=== PATIENT | female | born 1975 ===

== ENCOUNTER 2018-09-24 19:17 | Emergency (ER) | payer BC, MEDICAID ==
[2018-09-24 19:18] VITALS: BMI 35.4
[2018-09-24] MEDS ORDERED: Oxycodone/Acetaminophen 5/325 mg Tab PO STA (19:54)
[2018-09-24] MEDS ORDERED: Oxycodone/Acetaminophen 5/325 mg Tab ONE (20:07)
--- NOTE | 2018-09-24 20:15 | ED PDOC ---
HPI: General Adult Time Seen by Provider: 09/24/18 19:27 Chief Complaint (Nursing): ENT Problem Chief Complaint (Provider): ENT problem History Per: Patient History/Exam Limitations: no limitations Onset/Duration Of Symptoms: Days (2x weeks) Current Symptoms Are (Timing): Still Present Severity: Moderate Additional Complaint(s): 42 year old female with a past medical history of diabetes presents to the ED for an evaluation of left ear pain progressively worsening for the past 2x weeks. Patient reports taking meloxicam for the pain. Patient also reports that she takes enbrel. Patient denies recently swimming, having fevers, chills, or a sore throat. PMD: lark Past Medical History Reviewed: Historical Data, Nursing Documentation, Vital Signs Vital Signs: Last Vital Signs Temp 98.7 F 09/24/18 19:22 Pulse 85 09/24/18 19:22 Resp 16 09/24/18 19:22 BP 112/68 09/24/18 19:22 Pulse Ox 97 09/24/18 19:22 KAREEN Report Viewed: Yes - Medical History PMH: Arthritis, Diabetes, Kidney Stones (Right kidney stones with stent insertion 4 years ago), Chronic Kidney Disease, Rheumatoid Arthritis - Surgical History Surgical History: Appendectomy (2004) - Family History Family History: States: CAD, Diabetes - Social History Current smoker - smoking cessation education provided: No Alcohol: None Drugs: Denies - Immunization History Hx Tetanus Toxoid Vaccination: No Hx Influenza Vaccination: No Hx Pneumococcal Vaccination: No - Home Medications Home Medications: Ambulatory Orders Medication Instructions Recorded Etanercept [Enbrel] 50 mg SC QWK 10/10/14 MetFORMIN [glucoPHAGE] 1,000 mg PO BID 10/10/14 Dicyclomine [Bentyl] 10 mg PO Q8H PRN 09/11/15 Exenatide Microspheres [Bydureon 2 mg SC QWK 09/11/15 Pen] Famotidine [Pepcid] 20 mg PO BID 09/11/15 Sucralfate [Carafate Oral Susp] 1 gm PO QID #0 udc 09/12/15 Ciprofloxacin [Cipro] 500 mg PO BID #14 tab 09/24/18 Ibuprofen [Motrin Tab] 800 mg PO TID PRN #10 tab 09/24/18 Ofloxacin Otic 0.3% [Floxin 0.3% 10 drop DAILY #1 bottle 09/24/18 Otic Soln] - Allergies Allergies/Adverse Reactions: Allergies Allergy/AdvReac Type Severity Reaction Status Date / Time shellfish derived Allergy RASH Verified 09/11/15 09:17 Review of Systems ROS Statement: Except As Marked, All Systems Reviewed And Found Negative Constitutional: Negative for: Fever, Chills ENT: Positive for: Ear Pain (left ear). Negative for: Throat Pain Physical Exam - Reviewed Nursing Documentation Reviewed: Yes Vital Signs Reviewed: Yes - Physical Exam Appears: Positive for: Well, Non-toxic, No Acute Distress Head Exam: Positive for: ATRAUMATIC, NORMOCEPHALIC Skin: Positive for: Normal Color, Warm, Dry Eye Exam: Positive for: Normal appearance ENT: Positive for: Other (left ear canal: moderate erythema, (-) edema. bilateral TM intact. (-) mastoid swelling or tenderness. ). Negative for: Pharyngeal Erythema ((-) exudates), Tonsillar Exudate, Tonsillar Swelling ((-) erythema) Neurological/Psych: Positive for: Awake, Alert, Oriented (3x) - ECG O2 Sat by Pulse Oximetry: 97 (RA) Pulse Ox Interpretation: Normal - Progress Re-evaluation Time: 20:00 Condition: Re-examined, Improved Medical Decision Making Medical Decision Makin:27 Initial impression: 42 year old female with ear pain Intial plan: * toradol 30 mg IM * percocet 5/325 mg tab 1 tab PO * reevaluation Scribe Attestation: Documented by Kendy Brizuela, acting as a scribe for Alvin Lambert Provider Scribe Attestation: All medical record entries made by the Scribe were at my direction and personally dictated by me. I have reviewed the chart and agree that the record accurately reflects my personal performance of the history, physical exam, medical decision making, and the department course for this patient. I have also personally directed, reviewed, and agree with the discharge instructions and disposition. Disposition - Clinical Impression Clinical Impression: Otitis externa - Patient ED Disposition Is Patient to be Admitted: No - Disposition Referrals: [facility] [Outside] Disposition: Routine/Home Disposition Time: 20:00 Condition: IMPROVED Additional Instructions: LEMUEL SMITH, thank you for letting us take care of you today. Your provider was Rhonda Wooten MD and you were treated for LT EAR RODAS. The emergency medical care you received today was directed at your acute symptoms. If you were prescribed any medication, please fill it and take as directed. It may take several days for your symptoms to resolve. Return to the Emergency Department if your symptoms worsen, do not improve, or if you have any other problems. Please contact your doctor or call one of the physicians/clinics you have been referred to that are listed on the Patient Visit Information form that is included in your discharge packet. Bring any paperwork you were given at discharge with you along with any medications you are taking to your follow up visit. Our treatment cannot replace ongoing medical care by a primary care provider outside of the emergency department. Thank you for allowing the [facility] team to be part of your care today. If you had an X-Ray or CT scan: A Radiologist will review the ED reading if any change in treatment is needed we will contact you. If you had a blood, urine, or wound culture: It will take several days for the results, if any change in treatment is needed we will contact you. If you had an STI test: It will take 48 hours for the results. Please call after 1 week if you have not heard back. Prescriptions: Ciprofloxacin [Cipro] 500 mg PO BID #14 tab Ibuprofen [Motrin Tab] 800 mg PO TID PRN #10 tab PRN Reason: Pain Ofloxacin Otic 0.3% [Floxin 0.3% Otic Soln] 10 drop DAILY #1 bottle Instructions: Outer Ear Infection (DC) Forms: [email or web address] (Somali) Print Language: NORWEGIAN
[2018-09-24 21:05] VITALS: BP 108/63; PULSE 81; RESP 18; TEMP 98.8
[2018-09-24 21:29] VITALS: O2SAT 97
== END 2018-09-24 21:00 | disposition home or self-care (01) ==
LOC: H.ER 19:17
DX: H60.92 Unspecified otitis externa, left ear (principal); Z79.84 Long term (current) use of oral hypoglycemic drugs; Z82.49 Family history of ischemic heart disease and other diseases of the circulatory system
CPT/HCPCS: 81025; 96372; 99283; J1885

== ENCOUNTER 2018-10-03 10:47 | Emergency (ER) | payer MEDICAID ==
[2018-10-03 11:10] VITALS: TEMP 97.9
[2018-10-03 11:11] VITALS: BMI 34.2
[2018-10-03] MEDS: Sodium Chloride 0.9% 1,000 ML IV STA (13:26)
[2018-10-03 13:27] LABS: BASO % 0.4 % (0.0-2.0); EOS % 0.2 % (0.0-4.0); HEMOGLOBIN 13.5 g/dL (12.0-16.0); LYMPH # 2.2 K/uL (1.0-4.3); LYMPH % 28.5 % (20.0-40.0); MEAN CELL VOLUME 78.6 fl (81.0-99.0); MEAN CORPUSCULAR HEMOGLOBIN 25.5 pg (27.0-31.0); MEAN CORPUSCULAR HGB CONC 32.5 g/dL (33.0-37.0); MEAN PLATELET VOLUME 8.9 fl (7.2-11.7); MONO # 0.6 K/uL (0.0-0.8); MONO % 7.3 % (0.0-10.0); NEUT # 4.8 K/uL (1.8-7.0); NEUT % 63.6 % (50.0-75.0); NRBC % 0.1 % (0.0-0.0); RBC 5.31 Mil/uL (3.80-5.20); RED CELL DISTRIBUTION WIDTH 17.2 % (11.5-14.5); WHITE BLOOD COUNT 7.6 K/uL (4.8-10.8)
[2018-10-03 13:31] LABS: SQUAMOUS EPITHIAL 3 /hpf (0-5); URINE BILIRUBIN NEGATIVE (NEGATIVE); URINE BLOOD NEGATIVE (NEGATIVE); URINE CLARITY CLEAR (Clear); URINE COLOR YELLOW (YELLOW); URINE GLUCOSE (UA) 50 mg/dL (NEGATIVE); URINE LEUKOCYTE ESTERASE TRACE Leu/uL (Negative); URINE PROTEIN NEGATIVE (NEGATIVE); URINE UROBILINOGEN 0.2-1.0 mg/dL (0.2-1.0)
--- NOTE | 2018-10-03 13:35 | ED PDOC ---
HPI: CCC, URI, Sore Throat Time Seen by Provider: 10/03/18 11:25 Chief Complaint (Nursing): ENT Problem Chief Complaint (Provider): ENT Problem History Per: Patient History/Exam Limitations: no limitations Onset/Duration Of Symptoms: Days (x1 week) Current Symptoms Are (Timing): Still Present Additional Complaint(s): 42 year old female with medical history of rheumatoid arthritis, presents to the emergency department with a complaint of left ear and facial pain ongoing for 1 week. Patient was recently evaluated by PCP with (-) signs of infection noted and states symptoms are possibly related to RA but pain is persisting. Additionally, she reports associated nausea and vomiting but no fever or chills. PCP: Valeriy Past Medical History Reviewed: Historical Data, Nursing Documentation, Vital Signs Vital Signs: Last Vital Signs Temp 97.9 F 10/03/18 11:09 Pulse 83 10/03/18 11:09 Resp 16 10/03/18 11:09 BP 129/76 10/03/18 11:09 Pulse Ox 97 10/03/18 11:09 Primary Care Provider: FAMILY PROVIDER,NO - Medical History PMH: Arthritis, Diabetes, Kidney Stones (Right kidney stones with stent insertion 4 years ago), Chronic Kidney Disease, Rheumatoid Arthritis - Surgical History Surgical History: Appendectomy (2004) - Family History Family History: States: Unknown Family Hx, CAD, Diabetes - Social History Current smoker - smoking cessation education provided: No Alcohol: None Drugs: Denies - Immunization History Hx Tetanus Toxoid Vaccination: No Hx Influenza Vaccination: No Hx Pneumococcal Vaccination: No - Home Medications Home Medications: Ambulatory Orders Medication Instructions Recorded Etanercept [Enbrel] 50 mg SC QWK 10/10/14 MetFORMIN [glucoPHAGE] 1,000 mg PO BID 10/10/14 Dicyclomine [Bentyl] 10 mg PO Q8H PRN 09/11/15 Exenatide Microspheres [Bydureon 2 mg SC QWK 09/11/15 Pen] Famotidine [Pepcid] 20 mg PO BID 09/11/15 Sucralfate [Carafate Oral Susp] 1 gm PO QID #0 udc 09/12/15 Ciprofloxacin [Cipro] 500 mg PO BID #14 tab 09/24/18 Ibuprofen [Motrin Tab] 800 mg PO TID PRN #10 tab 09/24/18 Ofloxacin Otic 0.3% [Floxin 0.3% 10 drop DAILY #1 bottle 09/24/18 Otic Soln] Ciprofloxacin/Dexamethasone 1 drop BID #1 bottle 10/03/18 [Ciprodex Otic] Ibuprofen [Motrin] 600 mg PO Q6H PRN #20 tab 10/03/18 - Allergies Allergies/Adverse Reactions: Allergies Allergy/AdvReac Type Severity Reaction Status Date / Time shellfish derived Allergy RASH Verified 10/03/18 11:05 Curb-65 Severity Score - CURB-65 Severity Score Confusion: No Bun >19mg/dl (>7mmol/L): No Respiratory Rate greater than/equal to 30: No Systolic BP <90 or Diastolic BP less than/equal 60mmHg: No Age >64: No Curb-65 Score: 0 Percentage 30-day mortality: 0.6% Review of Systems ROS Statement: Except As Marked, All Systems Reviewed And Found Negative Constitutional: Negative for: Fever, Chills ENT: Positive for: Ear Pain (left), Other (left facial pain) Gastrointestinal: Positive for: Nausea, Vomiting Physical Exam - Reviewed Nursing Documentation Reviewed: Yes Vital Signs Reviewed: Yes - Physical Exam Appears: Positive for: Well, No Acute Distress Head Exam: Positive for: ATRAUMATIC, NORMAL INSPECTION, NORMOCEPHALIC Skin: Positive for: Normal Color Eye Exam: Positive for: Normal appearance ENT: Positive for: TM Is/Are (clear bilaterally. nonbulging and nonerythematous), Other (left canal with some edema associated with mastoid and TMJ tenderness; however there is no middle ear infection (clear TM wtih no bulging) ). Negative for: Pharyngeal Erythema Neck: Positive for: Normal, Supple Cardiovascular/Chest: Positive for: Regular Rate, Rhythm Respiratory: Positive for: Normal Breath Sounds. Negative for: Respiratory Distress Gastrointestinal/Abdominal: Positive for: Normal Exam Neurological/Psych: Positive for: Awake, Alert, Normal Tone - Laboratory Results Result Diagrams: 10/03/18 13:22 10/03/18 13:22 Lab Results: Urine Color Yellow (YELLOW) 10/03/18 13:22 Urine Clarity Clear (Clear) 10/03/18 13:22 Urine pH 6.0 (5.0-8.0) 10/03/18 13:22 Ur Specific [place] 1.011 (1.003-1.030) 10/03/18 13:22 Urine Protein Negative mg/dL (NEGATIVE) 10/03/18 13:22 Urine Glucose (UA) 50 mg/dL (NEGATIVE) 10/03/18 13:22 Urine Ketones Negative mg/dL (NEGATIVE) 10/03/18 13:22 Urine Blood Negative (NEGATIVE) 10/03/18 13:22 Urine Nitrate Negative (NEGATIVE) 10/03/18 13:22 Urine Bilirubin Negative (NEGATIVE) 10/03/18 13:22 Urine Urobilinogen 0.2-1.0 mg/dL (0.2-1.0) 10/03/18 13:22 Ur Leukocyte Esterase Trace Kirti/uL (Negative) 10/03/18 13:22 Urine RBC (Auto) 2 /hpf (0-3) 10/03/18 13:22 Urine Microscopic WBC 4 /hpf (0-5) 10/03/18 13:22 Ur Squamous Epith Cells 3 /hpf (0-5) 10/03/18 13:22 - ECG O2 Sat by Pulse Oximetry: 97 (RA) Pulse Ox Interpretation: Normal Medical Decision Making Medical Decision Making: Time: 1249 Initial Plan: FACIAL PAIN LEFT RADIATING TO AND FROM EAR, rule out infection, abscess, mastoiditis, facial abscess vs. mastoid infection * CT maxillofacial/IACs * Labs * IV fluids * Toradol IVP * Blood/urine culture Time: 1258 --CT head FINDINGS: NASAL BONES: Unremarkable ORBITS: Unremarkable. PARANASAL SINUSES/ MASTOIDS: Clear. MAXILLA: Unremarkable. MANDIBLE/ TEMPOROMANDIBULAR JOINTS: Unremarkable. SKULL BASE: Unremarkable. TEMPORAL BONES: Middle ears and mastoid grossly unremarkable. OTHER FINDINGS: Punctate radiodensities appreciated within the dermis at the inferior right frontal scalp/supraorbital skin. No emphysematous changes related. This may be chronic. IMPRESSION: No fracture or destructive bony lesion affecting the maxillofacial bones. Incidental punctate radiodensity inferior right frontal scalp/supraorbital skin likely of dermal origin. Time: 1606 --CT IACS FINDINGS: RIGHT TEMPORAL BONE: RIGHT MIDDLE EAR: Normal RIGHT INNER EAR: Cochlea: Normal Semicircular canals: Normal RIGHT MASTOID AIR CELLS: Normal RIGHT INTERNAL AUDITORY CANAL: Normal RIGHT EXTERNAL AUDITORY CANAL: Normal RIGHT VESTIBULAR AND COCHLEAR AQUEDUCT: Normal OTHER: No abnormal enhancement. LEFT TEMPORAL BONE: LEFT MIDDLE EAR: Normal LEFT INNER EAR: Cochlea: Normal Semicircular canals: Normal LEFT MASTOID AIR CELLS: Normal LEFT INTERNAL AUDITORY CANAL: Normal LEFT EXTERNAL AUDITORY CANAL: Normal LEFT VESTIBULAR AND COCHLEAR AQUEDUCTS: Normal OTHER FINDINGS: No abnormal enhancement. There is mild mucosal thickening in the maxillary sinuses and a small retention cyst/polyp in the right maxillary sinus. IMPRESSION: Unremarkable contrast enhanced CT of the internal auditory canals. Mild chronic maxillary sinusitis. Time: 1603 --Upon provider reevaluation, patient is medically stable, reports improvement in symptoms, AND pt is aware of results of imaging. and requires no further treatment in the ED at this time. Patient will be discharged home with Rx for Ciprodex. Counseling was provided and all questions were answered regarding diagnosis. There is agreement to discharge plan. Return if symptoms persist or worsen. Clinical Impression: Otitis externa Scribe Attestation: Documented by Ankita Kebede, acting as a scribe for Kylah Gilbert MD. Provider Scribe Attestation: All medical record entries made by the Scribe were at my direction and personally dictated by me. I have reviewed the chart and agree that the record accurately reflects my personal performance of the history, physical exam, medical decision making, and the department course for this patient. I have also personally directed, reviewed, and agree with the discharge instructions and disposition. Disposition - Clinical Impression Clinical Impression: Left ear pain, Infection of ear, external, left, Neuropathic pain - Patient ED Disposition Is Patient to be Admitted: No Counseled Patient/Family Regarding: Studies Performed, Diagnosis, Need For Followup - Disposition Referrals: Paulo Peraza MD [Staff Provider] - Disposition: Routine/Home Disposition Time: 16:03 Condition: IMPROVED Additional Instructions: follow up with your primary doctor in 1-2 day also follow up with ENT doctor within one week return to the ED with any worsening or concerning symptoms Prescriptions: Ciprofloxacin/Dexamethasone [Ciprodex Otic] 1 drop BID #1 bottle Ibuprofen [Motrin] 600 mg PO Q6H PRN #20 tab PRN Reason: Pain, Moderate (4-7) Instructions: Outer Ear Infection, Neuropathic Pain Forms: [email or web address] ([place])
[2018-10-03 13:44] LABS: ALB/GLOB RATIO 1.1 (1.0-2.1); ALBUMIN 4.2 g/dL (3.5-5.0); BLOOD UREA NITROGEN 15 mg/dl (7-17); CALCIUM 9.4 mg/dL (8.4-10.2); GFR NON-AFRICAN AMERICAN > 60
[2018-10-03 13:52] LABS: ALT/SGPT 25 U/L (9-52); AST/SGOT 31 U/L (14-36)
[2018-10-03] MEDS ORDERED: Sodium Chloride 0.9% 50 ML IV ONE (14:29)
[2018-10-03] MEDS ORDERED: Iohexol 300 100 ML IJ ONE (14:29)
--- NOTE | 2018-10-03 16:10 | CT ---
Date of service: 10/03/2018 PROCEDURE: CT OF THE IACs WITH CONTRAST HISTORY: Left facial and mastoid pain COMPARISON: None available. TECHNIQUE: Following administration of iodinated intravenous contrast, high resolution axial images of the temporal bones were obtained. Coronal and sagittal reformats were generated. Contrast dose: 95 cc Omnipaque 300 Radiation dose: Total exam DLP = 0.0 mGy-cm. This CT exam was performed using one or more of the following dose reduction techniques: Automated exposure control, adjustment of the mA and/or kV according to patient size, and/or use of iterative reconstruction technique. FINDINGS: RIGHT TEMPORAL BONE: RIGHT MIDDLE EAR: Normal RIGHT INNER EAR: Cochlea: Normal Semicircular canals: Normal RIGHT MASTOID AIR CELLS: Normal RIGHT INTERNAL AUDITORY CANAL: Normal RIGHT EXTERNAL AUDITORY CANAL: Normal RIGHT VESTIBULAR AND COCHLEAR AQUEDUCT: Normal OTHER: No abnormal enhancement. LEFT TEMPORAL BONE: LEFT MIDDLE EAR: Normal LEFT INNER EAR: Cochlea: Normal Semicircular canals: Normal LEFT MASTOID AIR CELLS: Normal LEFT INTERNAL AUDITORY CANAL: Normal LEFT EXTERNAL AUDITORY CANAL: Normal LEFT VESTIBULAR AND COCHLEAR AQUEDUCTS: Normal OTHER FINDINGS: No abnormal enhancement. There is mild mucosal thickening in the maxillary sinuses and a small retention cyst/polyp in the right maxillary sinus. IMPRESSION: Unremarkable contrast enhanced CT of the internal auditory canals. Mild chronic maxillary sinusitis.
--- NOTE | 2018-10-03 16:16 | CT ---
Date of service: 10/03/2018 PROCEDURE: CT MAXILLOFACIAL BONES WITHOUT CONTRAST HISTORY: pain COMPARISON: None available. TECHNIQUE: Contiguous axial CT images of the maxillofacial bones were obtained. Coronal and sagittal reformats were generated. Radiation dose: Total exam DLP = 840.91 mGy-cm. This CT exam was performed using one or more of the following dose reduction techniques: Automated exposure control, adjustment of the mA and/or kV according to patient size, and/or use of iterative reconstruction technique. FINDINGS: NASAL BONES: Unremarkable. ORBITS: Unremarkable. PARANASAL SINUSES/ MASTOIDS: Clear. MAXILLA: Unremarkable. MANDIBLE/ TEMPOROMANDIBULAR JOINTS: Unremarkable. SKULL BASE: Unremarkable. TEMPORAL BONES: Middle ears and mastoid grossly unremarkable. OTHER FINDINGS: Punctate radiodensities appreciated within the dermis at the inferior right frontal scalp/supraorbital skin. No emphysematous changes related. This may be chronic. IMPRESSION: No fracture or destructive bony lesion affecting the maxillofacial bones. Incidental punctate radiodensity inferior right frontal scalp/supraorbital skin likely of dermal origin.
[2018-10-03 17:30] VITALS: BP 130/72; PULSE 86; RESP 18
[2018-10-08 19:30] VITALS: O2SAT 97
== END 2018-10-03 17:29 | disposition home or self-care (01) ==
LOC: H.ER 10:47
DX: H60.92 Unspecified otitis externa, left ear (principal); M79.2 Neuralgia and neuritis, unspecified; J32.0 Chronic maxillary sinusitis; Z79.84 Long term (current) use of oral hypoglycemic drugs
CPT/HCPCS: 70481; 70488; 80053; 81003; 81025; 85025; 87040; 87086; 96374; 99284; J1885; J7030; Q9967